=== PATIENT | male | born 1945 | race Caucasian/White ===

== ENCOUNTER 2018-04-26 10:19 | Outpatient (CLI) | payer MEDICARE ==
--- NOTE | 2018-04-26 10:42 | RAD ---
PA AND LATERAL CHEST RADIOGRAPH: Date: 04-26-18 History: Dyspnea. Comparison: 03-22-17 FINDINGS: Again noted is a small right pleural effusion and associated atelectasis similar to prior examination . Left lung remains clear. Dual-lead left subclavian cardiac pacemaking device is noted in place. Med gilmer sternotomy wires are again noted. The cardiac silhouette and pulmonary vasculature are within nor mal limits. Vascular calcifications seen in the thoracic aorta. Chest is overall stable from prior ex am. IMPRESSION: Stable small right pleural effusion. There has been no interval change compared to the prior exam. POS: [facility]
== END 2018-04-26 10:20 | disposition home or self-care (01) ==
LOC: RAD 10:19
PROVIDERS: ATTEND Internal Medicine Critical Care Medicine
DX: R06.00 Dyspnea, unspecified (principal); J90 Pleural effusion, not elsewhere classified
CPT/HCPCS: 71046

== ENCOUNTER 2019-03-21 07:43 | Day surgery (SDC) | payer MEDICARE ==
[2019-03-20 10:57] VITALS: BMI 33.9
--- NOTE | 2019-03-21 11:14 | OP ---
DATE OF PROCEDURE: 03/21/2019 PROCEDURE PERFORMED: Colonoscopy. PREMEDICATION: Given by Anesthesiology Department. PREPROCEDURE DIAGNOSES: Screening, average risk. POSTPROCEDURE DIAGNOSIS: Normal colon exam. DESCRIPTION OF PROCEDURE: Written consents were obtained prior to procedure. After adequate sedation, rectal exam performed was normal. Then, the endoscope was advanced to the cecum. The quality of the bowel prep was good. The cecum, ascending colon, hepatic flexure, transverse colon, splenic flexure, descending colon, and rectosigmoid colon all appeared normal. Retroflexion was normal. The patient tolerated the procedure well. ASSESSMENT: 1. Normal screening colonoscopy. 2. Irritable bowel syndrome. RECOMMENDATION: 1. Fiber rich diet with daily fiber supplement. 2. No need for future colon screening at his age. Job ID: [id number]
[2019-03-21] MEDS ORDERED: ePHEDrine 50 MG/ML VIAL ONE (11:27)
[2019-03-21] MEDS ORDERED: PROPOFOL 200 MG/20 ML VIAL ONE (11:27)
--- NOTE | 2019-03-21 11:40 | OP ---
DATE OF PROCEDURE: 03/21/2019 PROCEDURES PERFORMED: Esophagogastroduodenoscopy with Andre dilatation. PREMEDICATION: Given by Anesthesiology Department. PREPROCEDURE DIAGNOSES: 1. Periodic dysphagia. 2. Gastroesophageal reflux disease. POSTPROCEDURE DIAGNOSES: 1. Lower esophageal stricture at 40 cm. 2. Otherwise, normal upper endoscopy. DESCRIPTION OF PROCEDURE: Written consents were obtained prior to procedure. After adequate sedation, the forward-viewing endoscope was advanced down to the stomach under direct vision to the second portion of duodenum. The duodenum and the bulb appeared normal. The pulses patent. The gastric antrum, body, fundus, and cardia all appeared normal. Retroflexion did not show any abnormality. The GE junction including Z-line was noted at 40 cm. Medially above, there was a concentric stricture that was noted. There was no other mucosal abnormality. There was no esophagitis seen. The endoscope was removed. A 54-[place] Andre dilator was then used to dilate the stricture. There was no immediate complication. The patient tolerated the procedure well. ASSESSMENT: 1. Lower esophageal stricture, status post dilation with 54-[place] Andre. 2. Gastroesophageal reflux disease without any other mucosal abnormality. RECOMMENDATION: 1. Continue with pantoprazole 40 mg oral q.a.m. 2. Antireflux measures with emphasis on weight reduction. 3. Follow up office in 4 to 5 weeks. Job ID: [id number]
== END 2019-03-21 11:22 | disposition home or self-care (01) ==
LOC: SDC 07:43
PROVIDERS: ATTEND Internal Medicine Gastroenterology
PROC: 0DJD8ZZ Inspection of Lower Intestinal Tract, Via Natural or Artificial Opening Endoscopic (ICD-10-PCS; principal; 2019-03-21)
PROC: 0DJ08ZZ Inspection of Upper Intestinal Tract, Via Natural or Artificial Opening Endoscopic (ICD-10-PCS; 2019-03-21)
PROC: 0D737ZZ Dilation of Lower Esophagus, Via Natural or Artificial Opening (ICD-10-PCS; 2019-03-21)
DX: K58.0 Irritable bowel syndrome with diarrhea (principal); K22.2 Esophageal obstruction; K21.9 Gastro-esophageal reflux disease without esophagitis; M19.90 Unspecified osteoarthritis, unspecified site; I11.0 Hypertensive heart disease with heart failure; I50.9 Heart failure, unspecified; E11.9 Type 2 diabetes mellitus without complications; F17.210 Nicotine dependence, cigarettes, uncomplicated; Z95.810 Presence of automatic (implantable) cardiac defibrillator; Z79.4 Long term (current) use of insulin; Z79.899 Other long term (current) drug therapy
CPT/HCPCS: 43235; 43450; 82962; G0121; 36416; J2704; J3490

== ENCOUNTER 2019-05-02 07:58 | Outpatient (CLI) | payer MEDICARE ==
--- NOTE | 2019-05-02 08:55 | RAD ---
TWO VIEW CHEST: COMPARISON: 04/26/2018. CLINICAL INDICATION: Dyspnea. FINDINGS: Left side AICD remains. Cardiac silhouette is stable. Patchy right basilar density with blunting of right costophrenic sulcus and pleural-based density again seen. No significant interval change. IMPRESSION: Pleural-based density at the inferior right chest remains which, again, may relate to a small volume pleural fluid and/or component of pleural thickening. POS: [facility]
== END 2019-05-02 07:59 | disposition home or self-care (01) ==
LOC: RAD 07:58
PROVIDERS: ATTEND Internal Medicine Critical Care Medicine
DX: R06.00 Dyspnea, unspecified (principal); R91.8 Other nonspecific abnormal finding of lung field
CPT/HCPCS: 71046

== ENCOUNTER 2020-06-17 11:09 | Outpatient (CLI) | payer MEDICARE ==
--- NOTE | 2020-06-17 13:14 | RAD ---
2 VIEW CHEST: Date: 06/17/2020 HISTORY: Dyspnea. FINDINGS: Lung castaneda are well aerated. No definite infiltrate. Evidence of blunting of the right CP angle and posterior gutter suggests small right effusion. No evidence of left effusion. No evidence of vascular congestion or edema. Heart size upper normal with postop sternotomy change. AICD leads are noted. IMPRESSION: Question small right pleural effusion. No focal infiltrate identified. POS: [facility]
== END 2020-06-17 11:10 | disposition home or self-care (01) ==
LOC: BICRAD 11:09
PROVIDERS: ATTEND Internal Medicine Critical Care Medicine
DX: R06.00 Dyspnea, unspecified (principal)
CPT/HCPCS: 71046

== ENCOUNTER 2021-07-06 07:49 | Outpatient (CLI) | payer MEDICARE | END 2021-07-06 07:50 | disposition home or self-care (01) | LOC: RAD 07:49 | PROVIDERS: ATTEND Internal Medicine Critical Care Medicine | DX: R06.00 Dyspnea, unspecified (principal) | CPT/HCPCS: 71046 ==

== ENCOUNTER 2023-05-02 11:52 | Emergency (ER) | payer MEDICARE ==
[2023-05-02 13:35] LABS: SARS-CoV-2 NAA Rapid Test Not Detected (NotDetected)
== END 2023-05-02 14:51 | disposition home or self-care (01) ==
LOC: ERS 11:52
DX: J01.90 Acute sinusitis, unspecified (principal); I10 Essential (primary) hypertension; E11.9 Type 2 diabetes mellitus without complications; E78.5 Hyperlipidemia, unspecified; F17.210 Nicotine dependence, cigarettes, uncomplicated; Z79.899 Other long term (current) drug therapy; Z79.82 Long term (current) use of aspirin; Z20.822 Contact with and (suspected) exposure to COVID-19
CPT/HCPCS: 0240U; 71045

== ENCOUNTER 2023-07-07 08:04 | Outpatient (CLI) | payer MEDICARE | END 2023-07-07 08:05 | disposition home or self-care (01) | LOC: RAD 08:04 | PROVIDERS: ATTEND Internal Medicine Critical Care Medicine | DX: R06.00 Dyspnea, unspecified (principal) | CPT/HCPCS: 71046 ==

== ENCOUNTER 2024-07-17 07:53 | Outpatient (CLI) | payer MEDICARE | END 2024-07-17 07:54 | disposition home or self-care (01) | LOC: RAD 07:53 | PROVIDERS: ATTEND Internal Medicine Critical Care Medicine | DX: R06.00 Dyspnea, unspecified (principal) | CPT/HCPCS: 71046 ==

== ENCOUNTER 2025-07-18 07:48 | Outpatient (CLI) | payer MEDICARE | END 2025-07-18 07:49 | disposition home or self-care (01) | LOC: RAD 07:48 | PROVIDERS: ATTEND Internal Medicine Critical Care Medicine | DX: R06.00 Dyspnea, unspecified (principal) | CPT/HCPCS: 71046 ==